=== PATIENT | male | born 1995 | race Caucasian/White ===

== ENCOUNTER 2018-05-21 00:11 | Emergency (ER) | payer BC, OTHER | END 2018-05-21 03:29 | disposition home or self-care (01) | LOC: FTE 00:11 | DX: S60.131A Contusion of right middle finger with damage to nail, initial encounter (principal); W26.8XXA Contact with other sharp object(s), not elsewhere classified, initial encounter; Y92.89 Other specified places as the place of occurrence of the external cause | CPT/HCPCS: 73140; 99283-25 ==